=== PATIENT | female | born 1960 | race Caucasian/White ===

== ENCOUNTER → 2019-01-28 | Outpatient (CLI) | payer MEDICARE, OTHER ==
[~2019-01-28] MED LIST: CELE200 PO; FLUO10 PO; GABA600 PO; HYDR1TAB94 PO; LEVSOD100 PO; NORT25 PO
[2019-01-30 13:34] LABS: Stool Occult Bld Immuno 1 Negative (NEGATIVE); Stool Occult Bld Immuno 2 Negative (NEGATIVE); Stool Occult Bld Immuno 3 Negative (NEGATIVE)
== END | disposition home or self-care (01) ==
LOC: LAB EV 20:55
PROVIDERS: Nurse Practitioner
DX: D64.9 Anemia, unspecified (principal)
CPT/HCPCS: 82274

== ENCOUNTER → 2021-01-24 | Outpatient (CLI) | payer MEDICARE, OTHER ==
[2021-01-24 18:08] LABS: BASOPHILS ABSOLUTE AUTO 0.03 K/mm3 (0.00-0.23); BASOPHILS PERCENT AUTO 0 % (0-2); EOSINOPHILS ABSOLUTE AUTO 0.06 K/mm3 (0.00-0.68); EOSINOPHILS PERCENT AUTO 1 % (0-6); Hematocrit 37.4 % (33.0-51.0); Hemoglobin 11.8 g/dL (11.5-16.0); IMMATURE GRAN ABSOLUTE AUTO 0.03 K/mm3 (0.00-0.10); IMMATURE GRAN PERCENT AUTO 0 % (0-1); LYMPHOCYTES ABSOLUTE AUTO 2.09 K/mm3 (0.84-5.20); LYMPHOCYTES PERCENT AUTO 30 % (21-46); MONOCYTES ABSOLUTE AUTO 0.72 K/mm3 (0.16-1.47); MONOCYTES PERCENT AUTO 10 % (4-13); Mean Corpuscular HGB 31.7 pg (26.0-34.0); Mean Corpuscular HGB Conc 31.6 g/dL (31.5-36.5); Mean Corpuscular Volume 101 fL (80-100); Mean Platelet Volume 9.3 fL (9.1-12.4); NEUTROPHILS ABSOLUTE AUTO 4.14 K/mm3 (1.96-9.15); NEUTROPHILS PERCENT AUTO 59 % (41-73); Platelet Count 261 K/mm3 (150-400); RDW Coefficient Variation 13.2 % (11.7-14.2); RDW Standard Deviation 49.1 fL (35.1-46.3); Red Blood Cell Count 3.72 M/mm3 (3.80-5.20); White Blood Cell Count 7.07 K/mm3 (4.00-11.30)
[2021-01-24 18:26] LABS: Alanine Aminotransfer (ALT/SGP 25 U/L (12-78); Albumin, Blood 3.7 g/dL (3.4-5.0); Albumin/Globulin Ratio 1.1 (0.8-1.8); Alk Phos 108 U/L (40-126); Anion Gap 13 mmol/L (6-16); Aspartate Aminotrans (AST/SGOT 22 U/L (12-37); Bilirubin, Total 0.3 mg/dL (0.1-1.0); Blood Urea Nitrogen 21 mg/dL (8-24); Bun/Creatinine Ratio 24.7 (12.0-20.0); CO2, Blood 22 mmol/L (21-32); Calcium, Blood 8.8 mg/dL (8.5-10.1); Chloride, Blood 107 mmol/L (98-108); Creatinine, Blood 0.85 mg/dL (0.40-1.00); Globulin, Blood 3.3 g/dL (2.2-4.0); Glomerular Filtration Rate >60 (60-); Glucose, Blood 99 mg/dL (70-99); Magnesium, Blood 2.1 mg/dL (1.6-2.4); Potassium, Blood 3.4 mmol/L (3.5-5.5); Sodium, Blood 142 mmol/L (136-145)
[2021-01-24 18:27] LABS: Thyroid Stimulating Hormone <0.005 uIU/mL (0.360-4.800)
[2021-01-24 18:51] LABS: Free Thyroxine 1.34 ng/dL (0.70-1.60)
[2021-01-24 19:24] LABS: Triiodothyronine, Free 2.65 pg/mL (2.18-3.98)
== END | disposition home or self-care (01) ==
LOC: LAB SHORT 18:02 → PLD 18:02
PROVIDERS: Physician Assistant Medical
DX: R27.0 Ataxia, unspecified (principal); R53.83 Other fatigue
CPT/HCPCS: 80053; 82607; 82746; 83735; 84439; 84443; 84481; 85025

== ENCOUNTER → 2021-09-22 | Outpatient (CLI) | payer MEDICARE ==
[2021-09-22 17:43] LABS: Body Fluid Crystals NEG (NEGATIVE)
[2021-09-22 18:08] LABS: BODY FLUID RBC 0.041 M/mm3 (0-0); RBC Count, Synovial Fluid 41000 /mm3 (0-0); WBC Count, Synovial Fluid 2691 /mm3 (0-180)
[2021-09-22 18:36] LABS: Lymphs, Synovial Fluid 7 % (0-15); Monocytes/Macrophages, Synovia 2 % (0-65); Neutrophils, Synovial Fluid 91 % (0-24)
[2021-09-22 18:37] LABS: Appearance, Synovial Fluid Turbid (Clear); Color, Synovial Fluid Brown (None-P Yel)
== END | disposition home or self-care (01) ==
LOC: LAB SHORT 09:40
PROVIDERS: Family Medicine
DX: M25.429 Effusion, unspecified elbow (principal)
CPT/HCPCS: 87070; 87075; 87205; 89051; 89060

== ENCOUNTER → 2021-10-22 | Outpatient (CLI) | payer MEDICARE | END | disposition home or self-care (01) | LOC: LAB 11:56 → LAB SHORT 11:56 | DX: L08.9 Local infection of the skin and subcutaneous tissue, unspecified (principal) | CPT/HCPCS: 87070; 87075; 87077; 87186; 87205 ==

== ENCOUNTER 2022-05-19 14:10 | Emergency (ER) | payer MEDICARE ==
[~2022-05-19] VITALS: Ht 167.6 cm; Wt 99.8 kg
[2022-05-19 15:54] LABS: BASOPHILS ABSOLUTE AUTO 0.03 K/mm3 (0.00-0.23); BASOPHILS PERCENT AUTO 0 % (0-2); EOSINOPHILS ABSOLUTE AUTO 0.17 K/mm3 (0.00-0.68); EOSINOPHILS PERCENT AUTO 2 % (0-6); Hematocrit 30.8 % (33.0-51.0); Hemoglobin 9.4 g/dL (11.5-16.0); IMMATURE GRAN ABSOLUTE AUTO 0.07 K/mm3 (0.00-0.10); IMMATURE GRAN PERCENT AUTO 1 % (0-1); LYMPHOCYTES ABSOLUTE AUTO 1.87 K/mm3 (0.84-5.20); LYMPHOCYTES PERCENT AUTO 16 % (21-46); MONOCYTES ABSOLUTE AUTO 0.93 K/mm3 (0.16-1.47); MONOCYTES PERCENT AUTO 8 % (4-13); Mean Corpuscular HGB 28.4 pg (26.0-34.0); Mean Corpuscular HGB Conc 30.5 g/dL (31.5-36.5); Mean Corpuscular Volume 93 fL (80-100); Mean Platelet Volume 9.4 fL (9.1-12.4); NEUTROPHILS ABSOLUTE AUTO 8.54 K/mm3 (1.96-9.15); NEUTROPHILS PERCENT AUTO 74 % (41-73); Platelet Count 231 K/mm3 (150-400); RDW Coefficient Variation 16.5 % (11.7-14.2); RDW Standard Deviation 56.5 fL (35.1-46.3); Red Blood Cell Count 3.31 M/mm3 (3.80-5.20); White Blood Cell Count 11.61 K/mm3 (4.00-11.30)
[2022-05-19 16:11] LABS: Albumin, Blood 3.1 g/dL (3.4-5.0); Albumin/Globulin Ratio 0.8 (0.8-1.8); Bilirubin, Total 0.4 mg/dL (0.1-1.0); Bun/Creatinine Ratio 15.3 (12.0-20.0); Creatinine, Blood 0.85 mg/dL (0.40-1.00); Globulin, Blood 3.9 g/dL (2.2-4.0); Potassium, Blood 3.5 mmol/L (3.5-5.5)
== END 2022-05-19 18:30 | disposition home or self-care (01) ==
LOC: ER 14:10
PROVIDERS: Physician Assistant
DX: L03.116 Cellulitis of left lower limb (principal); S91.115A Laceration without foreign body of left lesser toe(s) without damage to nail, initial encounter; D64.9 Anemia, unspecified; Z87.891 Personal history of nicotine dependence; Z79.899 Other long term (current) drug therapy; X58.XXXA Exposure to other specified factors, initial encounter
CPT/HCPCS: 36415; 73620; 80053; 85025

== ENCOUNTER → 2022-07-19 | Outpatient (CLI) | payer MEDICARE | END | disposition home or self-care (01) | LOC: LAB 20:17 → LAB SHORT 20:17 | DX: L08.9 Local infection of the skin and subcutaneous tissue, unspecified (principal) | CPT/HCPCS: 87070; 87075; 87077; 87147; 87186; 87205 ==

== ENCOUNTER 2023-08-30 06:10 | Day surgery (SDC) | payer MEDICARE ==
[~2023-08-30] VITALS: Ht 167.6 cm; Wt 100.3 kg
[~2023-08-30 06:10] MED LIST changes: +BRIMONIDINE TART5 M1 LEFTEYE; +Diamox500 MG PO; +OCUFLOX5 M9; +OMEP20ER PO; +PREDNISOLO15 MG/5 ML; +TIMDOROPSO LEFTEYE
--- NOTE | 2023-08-30 07:23 | NUR ---
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
--- NOTE | 2023-08-30 08:48 | NUR ---
08/30/23 0848 Lindsey Bucio PATIENT ON TMAXX BED. GEL PAD UNDER RIGHT ARM, WEDGE UNDER KNEES, LEFT ARM IN SPIDER, SAFETY STRAPS AT HIPS AND LOWER LEGS WITH GEL PADS UNDERNEATH THE STRAPS, WRIST RESTRAINT ON RIGHT ARM.
[2023-08-30 11:22] VITALS: BP 131/81
--- NOTE | 2023-08-30 11:33 | NUR ---
08/30/23 1133 An Smith SECOND DOSE OF TRANEXAMIC ACID STARTED INFUSING AT 1122.
== END 2023-08-30 12:44 | disposition home or self-care (01) ==
LOC: ORSCSDS 06:10
PROVIDERS: Orthopaedic Surgery
PROC: 0RRK00Z Replacement of Left Shoulder Joint with Reverse Ball and Socket Synthetic Substitute, Open Approach (ICD-10-PCS; principal; 2023-08-30 07:30)
DX: M12.812 Other specific arthropathies, not elsewhere classified, left shoulder (principal); E03.9 Hypothyroidism, unspecified; E66.9 Obesity, unspecified; Z68.35 Body mass index [BMI] 35.0-35.9, adult; K21.9 Gastro-esophageal reflux disease without esophagitis; Z87.891 Personal history of nicotine dependence; Z79.899 Other long term (current) drug therapy
CPT/HCPCS: A9270; C1713; C1776; J0171; J0690; J0735; J0736; J1100; J1885; J2250; J2405; J2704; J2795; J3010; J7120

== ENCOUNTER 2023-10-03 15:25 | Emergency (ER) | payer MEDICARE ==
[~2023-10-03] VITALS: Ht 167.6 cm; Wt 90.7 kg
[2023-10-03 15:29] VITALS: BP 150/91
== END 2023-10-03 16:36 | disposition home or self-care (01) ==
LOC: ER 15:25
DX: S01.512A Laceration without foreign body of oral cavity, initial encounter (principal); S01.81XA Laceration without foreign body of other part of head, initial encounter; E03.9 Hypothyroidism, unspecified; Z87.891 Personal history of nicotine dependence; Z79.899 Other long term (current) drug therapy; W01.198A Fall on same level from slipping, tripping and stumbling with subsequent striking against other object, initial encounter
CPT/HCPCS: 12013; 99282-25

== ENCOUNTER 2024-07-31 11:25 | Emergency (ER) | payer MEDICARE ==
[~2024-07-31] VITALS: Ht 170.2 cm; Wt 93.0 kg
[2024-07-31] MEDS ORDERED: HYDROmorphone HCl/Pf 1MG SYR IV ONE (11:55)
[2024-07-31 12:01] LABS: BASOPHILS ABSOLUTE AUTO 0.03 K/mm3 (0.00-0.23); BASOPHILS PERCENT AUTO 1 % (0-2); EOSINOPHILS ABSOLUTE AUTO 0.04 K/mm3 (0.00-0.68); EOSINOPHILS PERCENT AUTO 1 % (0-6); Hematocrit 31.3 % (33.0-51.0); IMMATURE GRAN ABSOLUTE AUTO 0.01 K/mm3 (0.00-0.10); IMMATURE GRAN PERCENT AUTO 0 % (0-1); LYMPHOCYTES ABSOLUTE AUTO 1.74 K/mm3 (0.84-5.20); LYMPHOCYTES PERCENT AUTO 30 % (21-46); MONOCYTES ABSOLUTE AUTO 0.39 K/mm3 (0.16-1.47); MONOCYTES PERCENT AUTO 7 % (4-13); Mean Corpuscular HGB 31.2 pg (26.0-34.0); Mean Corpuscular HGB Conc 31.9 g/dL (31.5-36.5); Mean Corpuscular Volume 98 fL (80-100); Mean Platelet Volume 9.3 fL (9.1-12.4); NEUTROPHILS ABSOLUTE AUTO 3.62 K/mm3 (1.96-9.15); NEUTROPHILS PERCENT AUTO 62 % (41-73); Platelet Count 229 K/mm3 (150-400); RDW Coefficient Variation 16.4 % (11.7-14.2); RDW Standard Deviation 59.2 fL (35.1-46.3); Red Blood Cell Count 3.21 M/mm3 (3.80-5.20); White Blood Cell Count 5.83 K/mm3 (4.00-11.30)
[2024-07-31 12:26] LABS: Albumin, Blood 3.6 g/dL (3.4-5.0); Albumin/Globulin Ratio 1.2 (0.8-1.8); Bilirubin, Total 0.5 mg/dL (0.1-1.0); Bun/Creatinine Ratio 10.6 (12.0-20.0); Calcium, Blood 8.1 mg/dL (8.5-10.1); Creatinine, Blood 0.66 mg/dL (0.40-1.00); Globulin, Blood 2.9 g/dL (2.2-4.0); Potassium, Blood 3.7 mmol/L (3.5-5.5); Total Protein, Blood 6.5 g/dL (6.4-8.2)
[2024-07-31] MEDS ORDERED: Ketorolac Tromethamine 15mg Vial IV ONE (13:00)
[2024-07-31] MEDS ORDERED: Diphth,Pertuss(Acell),Tet Vac 0.5 ML VIAL IM ONE (13:00)
[2024-07-31 14:46] VITALS: BP 162/89
== END 2024-07-31 14:47 | disposition home or self-care (01) ==
LOC: ER 11:25
PROVIDERS: Emergency Medicine
DX: S02.2XXA Fracture of nasal bones, initial encounter for closed fracture (principal); S01.511A Laceration without foreign body of lip, initial encounter; M25.511 Pain in right shoulder; W10.8XXA Fall (on) (from) other stairs and steps, initial encounter; Z79.899 Other long term (current) drug therapy
CPT/HCPCS: 12001; 70450; 72125; 73030; 80053; 85025; 90471; 90715; 93005; 93010; 96374-59; 96375-59; 99284-25; J1170; J1885

== ENCOUNTER 2024-12-16 06:36 | Day surgery (SDC) | payer OTHER ==
[~2024-12-16] VITALS: Ht 165.1 cm; Wt 98.0 kg
[2024-12-16 07:07] VITALS: BP 99/62
[2024-12-16] MEDS ORDERED: Midazolam HCl 1MG / ML 2ML Vial ONE (07:07)
[2024-12-16] MEDS ORDERED: propofoL 0 ML IV ONE (07:07)
[2024-12-16] MEDS ORDERED: Rocuronium Bromide 10 MG/ML 5ML Injection IV ONE (07:07)
[2024-12-16] MEDS ORDERED: Acetaminophen 500 MG Tab PO SCH (07:10)
[2024-12-16] MEDS ORDERED: Chlorhexidine Mouth Care 15 ML UDC MT SCH (07:10)
[2024-12-16] MEDS ORDERED: OxyCODONE HCL 10 MG TABCR PO SCH (07:10)
[2024-12-16] MEDS ORDERED: Tranexamic Acid 100 ML IV SCH (07:10)
[2024-12-16] MEDS ORDERED: CeFAZolin Sodium 2,000 MG in NS 100 ML IV SCH (07:10)
[2024-12-16] MEDS ORDERED: LATA.005SO (07:11)
[2024-12-16] MEDS ORDERED: Ropivacaine 0.5% HCL/PF 5 MG/ML 30ML Vial ONE (07:11)
[2024-12-16] MEDS ORDERED: Lactated Ringer's 1,000 ML IV ONE ×2 (07:14→08:40)
[2024-12-16] MEDS ORDERED: Acetaminophen 500 MG Tab ONE (07:17)
[2024-12-16] MEDS ORDERED: OxyCODONE HCL 10 MG TABCR ONE (07:17)
[2024-12-16] MEDS ORDERED: CeFAZolin Sodium 2,000 MG VIAL ONE (07:17)
[2024-12-16] MEDS ORDERED: TRANEXAMIC ACID IV ONE (07:27)
[2024-12-16 08:23] LABS: Albumin, Blood 3.8 g/dL (3.4-5.0); Albumin/Globulin Ratio 1.2 (0.8-1.8); Bilirubin, Direct 0.1 mg/dL (0.0-0.3); Bilirubin, Indirect 0.2 mg/dL (0.1-0.7); Bilirubin, Total 0.3 mg/dL (0.1-1.0); Globulin, Blood 3.3 g/dL (2.2-4.0); Total Protein, Blood 7.1 g/dL (6.4-8.2)
--- NOTE | 2024-12-16 09:18 | NUR ---
12/16/24 0918 Ryann Chou LATE ENTRY UPON ARRIVING TO [facility] TELEPHONE SUPERVISOR STAFF NOTICED THAT THE PATIENT WAS SLURRING HER WORDS, AND URINATED THROUGH HER PANTS WHILE CHECKING IN AT THE TELEPHONE SUPERVISOR. THIS RN WAS NOTIFIED. RN ASSISTED PT TO THE REST ROOM TO OBTAIN WEIGHT AND HAVE HER CHANGE INTO HER GOWN. PT CONTINUED TO SLUR HER SPEACH AND WAS UNSTEADY ON HER FEET. WHILE SITTING IN THE CHAIR IN FRONT OF THE TOILET, PT ASKED "IF I NEED TO USE THE TOILET, WHERE IS THE RESTROOM?" AFTER CHANGING INTO HER GOWN RN ASSISTED PT TO HER ROOM VIA WHEELCHAIR. PT STATED THAT SHE HAD HOLD HAD "2 SIPS OF WATER" THIS MORNING WITH HER MEDICATIONS. DURING THE PHYSICAL ASSESSMENT PT DENIED DRINKING ALCOHOL OR TAKING OTHER MEDICATIONS NOT ON HER MED LIST. PT STATED SHE LAST DRANK ETOH "OVER A WEEK AGO." PT WAS ANSWERING QUESTIONS APPROPRIATELY HOWEVER WAS FALLING ASLEEP IN BETWEEN QUESTIONS. DR BARNETT AND DR ALEXANDER WAS NOTIFIED OF THE PATIENT'S CURRENT STATUS. DR ALEXANDER ASSESSED THE PATIENT AND HAD A LENGTHY DISCUSSION. PT ADMITTED TO DRINKING WINE LAST NIGHT. DR BARNETT ORDERED ETHYL ETOH LEVELS AND A LIVER PANEL. BASED UPON LAB VALUES AND PHYSICAL CONDITION THE CASE WAS CANCELLED BY DR BARNETT AND DR ALEXANDER.
== END 2024-12-16 08:48 | disposition home or self-care (01) ==
LOC: ORSCSDS 06:36
PROVIDERS: Orthopaedic Surgery
DX: M12.811 Other specific arthropathies, not elsewhere classified, right shoulder (principal); Z53.9 Procedure and treatment not carried out, unspecified reason
CPT/HCPCS: 80076; 80320; A9270; J0690; J2250; J2704; J2795; J7120